=== PATIENT | male | born 1980 | race Caucasian/White ===

== ENCOUNTER 2020-09-10 17:15 | Emergency (ER) | payer OTHER ==
[2020-09-10 17:44] VITALS: BP 116/69; PULSE 53; BMI 24.3
[2020-09-10] MEDS ORDERED: METHOCARBAMOL 500 MG TABLET PO ONE (18:18)
[2020-09-10] MEDS ORDERED: KETOROLAC TROMETHAMINE 30 MG/1 ML VIAL IM ONE (18:18)
[2020-09-10] MEDS ORDERED: KETOROLAC TROMETHAMINE 30 MG/1 ML VIAL ONE (18:23)
[2020-09-10] MEDS ORDERED: METHOCARBAMOL 500 MG TABLET ONE (18:23)
== END 2020-09-10 18:33 | disposition home or self-care (01) ==
LOC: JERFT 17:15
PROC: 3E0233Z Introduction of Anti-inflammatory into Muscle, Percutaneous Approach (ICD-10-PCS; principal; 2020-09-10)
DX: M62.838 Other muscle spasm (principal); M62.830 Muscle spasm of back; S00.03XA Contusion of scalp, initial encounter
CPT/HCPCS: 99284-25

== ENCOUNTER 2022-01-14 17:37 | Emergency (ER) | payer OTHER ==
[2022-01-14 17:52] VITALS: BP 116/76; PULSE 60; TEMP 98.2; BMI 25.1
[2022-01-14] MEDS ORDERED: METHOCARBAMOL 500 MG TABLET PO ONE (19:12)
[2022-01-14] MEDS ORDERED: KETOROLAC TROMETHAMINE 30 MG/1 ML VIAL IM ONE (19:12)
[2022-01-14] MEDS ORDERED: METHOCARBAMOL 500 MG TABLET ONE (19:14)
[2022-01-14] MEDS ORDERED: KETOROLAC TROMETHAMINE 30 MG/1 ML VIAL ONE (19:14)
== END 2022-01-14 20:00 | disposition home or self-care (01) ==
LOC: JERFT 17:37
PROC: 3E0233Z Introduction of Anti-inflammatory into Muscle, Percutaneous Approach (ICD-10-PCS; principal; 2022-01-14)
DX: S29.012A Strain of muscle and tendon of back wall of thorax, initial encounter (principal); M62.830 Muscle spasm of back
CPT/HCPCS: 99284-25

== ENCOUNTER 2024-06-26 17:39 | Emergency (ER) | payer OTHER ==
[2024-06-26 17:54] VITALS: BP 110/66; PULSE 56; RESP 20; TEMP 98.2; BMI 25.7
[2024-06-26] MEDS ORDERED: KETOROLAC TROMETHAMINE 30 MG/1 ML VIAL ONE (18:26)
[2024-06-26] MEDS ORDERED: LIDOCAINE 4% PATCH TP ONE (18:26)
[2024-06-26] MEDS: LIDOCAINE 4% PATCH TP ONE (18:32)
[2024-06-26] MEDS: KETOROLAC TROMETHAMINE 30 MG/1 ML VIAL IM ONE (18:32)
== END 2024-06-26 18:48 | disposition home or self-care (01) ==
LOC: JERFT 17:39
PROC: 3E0133Z Introduction of Anti-inflammatory into Subcutaneous Tissue, Percutaneous Approach (ICD-10-PCS; principal; 2024-06-26)
DX: M54.50 Low back pain, unspecified (principal)
CPT/HCPCS: 99284-25